=== PATIENT | male | born 2000 ===

== ENCOUNTER 2021-12-13 19:25 | Emergency (ER) | payer SELFPAY ==
[~2021-12-13] VITALS: Ht 165.1 cm; Wt 74.8 kg
[2021-12-13 19:42] VITALS: BP 122/86
[2021-12-13] MEDS ORDERED: TETRACAINE 0.5% OPHTH SOLN 4 ML BTL (SINGLE DOSE ONLY) OU ONE (20:00)
[2021-12-13] MEDS ORDERED: BSS 15 ML IR ONE (20:00)
[2021-12-13] MEDS ORDERED: NEO/POLYM/GRAM (NEOSPORIN) OPHTH SOLN 10ML OU ONE (20:00)
[2021-12-13] MEDS ORDERED: FLUORESCEIN (FLUOR-I-STRIPS) 1 MG STRP OU ONE (20:00)
--- NOTE | 2021-12-13 20:00 | ED EENT ---
History of Present Illness General Chief Complaint: Eye Problems Stated Complaint: TEAR IN LEFT EYE History of Present Illness Date Seen by Provider: Dec 13, 2021 Time Seen by Provider: 20:00 Initial Comments Patient is a 21-year-old male who was using a tap grinder to cut metal yesterday. He woke up this morning with significant left eye pain and drainage. He states he was wearing eye protection. He went to [facility] clinic today and they told him he had a "cut" on his eye. He was given some proparacaine drops prior to coming to the emergency department. His last tetanus shot was 4 years ago. He has no chronic medical conditions. Former smoker. No known drug allergies. Brazilian-speaking. Timing/Duration: gradual Location: eye (L) Prearrival Treatment: prescription meds Associated Symptoms: denies symptoms Allergies and Home Medications Allergies Coded Allergies: No Known Drug Allergies (Unverified , 12/13/21) Patient Home Medication List Home Medication List Reviewed: Yes Review of Systems Review of Systems Constitutional: see HPI Eyes: Drainage, Foreign Body Sensation, Inflammation, Pain Ears: No Symptoms Reported Nose: no symptoms reported Throat: no symptoms reported Respiratory: no symptoms reported Cardiovascular: no symptoms reported Gastrointestinal: no symptoms reported Musculoskeletal: no symptoms reported Skin: no symptoms reported All Other Systems Reviewed Negative Unless Noted: Yes Visual Acuity : Eye Location: Left Vision Acuity Degree: 20/30 Physical Exam Vital Signs Vital Signs - First Documented 12/13/21 19:42 Temp 36.3 Pulse 73 Resp 16 B/P (MAP) 122/86 (98) Pulse Ox 98 Height, Weight, BMI Height: '" Weight: lbs. oz. kg; BMI Method: General Appearance: WD/WN, no apparent distress Eyes: left eye abnormal pupil, left eye conjunctival inflammation, left eye corneal abrasion, left eye lid inflammation, left eye other (primarily clear tears - a little "milky" at the medial canthus) Ears: bilateral ear auricle normal Cardiovascular: regular rate, rhythm Respiratory: no respiratory distress, no accessory muscle use Neurologic/Psychiatric: alert, normal mood/affect, oriented x 3 Skin: normal color, warm/dry Visual acuity left eye 20/30; right eye 20/40 Procedures/Interventions Eye : Location: left eye Anesthesia (gtts): Tetracaine Progress/Procedure Conclusion Slit lamp used to evaluate the left eye. Significant dye uptake across the upper third of the cornea, in a punctate fashion. Small abrasion at the 7 oclock position; another area of punctate uptake at about the 5 oclock position over the iris Progress/Results/Core Measures Results/Orders My Orders Orders - KERMIT LAMAS MD Alfredo/Poly/Gram Ophthalmic Soln (Neosporin (12/13/21 20:00) Tetracaine 0.5% Ophth Mel Sdv (Tetracai (12/13/21 20:00) Fluorescein Strips (Otwiz-C-Xzldpw) (12/13/21 20:00) Balanced Salt Irrigation Soln (Bss Irrig (12/13/21 20:00) Tropicamide 1% Ophth Soln (Mydriacyl 1% (12/13/21 21:30) Alfredo/Poly/Dex Ophthalmic Susp (Maxitrol O (12/14/21 00:00) Medications Given in ED Current Medications Medications Dose Ordered Sig/Niki Route Start Time Stop Time Status Last Admin Dose Admin Balanced Salt Solution 15 ml ONCE ONCE IR 12/13/21 20:00 12/13/21 20:01 DC 12/13/21 20:44 15 ML Fluorescein Sodium 1 mg ONCE ONCE OU 12/13/21 20:00 12/13/21 20:01 DC 12/13/21 20:44 1 MG Neomycin/ Polymyxin/ Gramicidin 3 ml ONCE ONCE OU 12/13/21 20:00 12/13/21 20:01 DC 12/13/21 20:44 3 ML Tetracaine HCl 4 ml ONCE ONCE OU 12/13/21 20:00 12/13/21 20:01 DC 12/13/21 20:44 4 ML Vital Signs/I&O 12/13/21 19:42 Temp 36.3 Pulse 73 Resp 16 B/P (MAP) 122/86 (98) Pulse Ox 98 Progress Progress Note #1: Time: 21:08 Progress Note Discussed with Dr Wen - would like me to dilate the pupil and start him on antibiotic drops 4x a day. He will see him in the office at 8am in the morning for further evaluation. Progress Note #2: Time: 22:25 Progress Note After a massive investigation for Tobradex, Maxitrol and Xylet - we found none of these medications were stocked at the hospital. Patient was provided with the neomycin solution after the midriatic drops were instilled. He was instructed to use 2 drops every 4 hours religiously and strongly encouraged to keep the appointment with Dr Wen first thing in the morning. Departure Impression Primary Impression: Traumatic iritis Additional Impression: Corneal abrasion Qualified Codes: S05.02XA - Injury of conjunctiva and corneal abrasion without foreign body, left eye, initial encounter Disposition: 01 HOME, SELF-CARE Condition: Stable Departure-Patient Inst. Decision time for Depature: 21:38 Referrals: RIKKI WEN OD NO,LOCAL PHYSICIAN (PCP) Primary Care Physician Patient Instructions: Corneal Abrasion ED Add. Discharge Instructions: Use the antibiotic drops, 2 drops in your left eye every [address] Wen will see you in his clinic at 8 AM in the morning. Please be there on time. The address is on this paperwork. You can take [id number] ibuprofen 3 tablets every 6 hours with food as needed for pain. You should not have a fire truck driver until you see Dr. Wen because your vision will be affected for the next 24 hours. Return to the emergency department for increased pain, fever, drainage or any other emergent concerning symptoms. Use las gotas antibiticas, 2 gotas en yuan tessa davida cada [address] Wen lo reed en yuan clnica a las 8 AM de la maana. Por favor, llegue a tiempo. La direccin est en marie papeleo. Puede meagan ibuprofeno 3 tabletas de venta ruben cada 6 horas con alimentos segn sea necesario para el dolor. No debe tener un conductor hasta que aurelio al Dr. Wen porque yuan visin se reed afectada sasha las prximas 24 horas. Regrese al departamento de emergencias para un aumento del dolor, fiebre, drenaje o cualquier otro sntoma emergente relacionado. Images Eye 1 - Dye uptake (fluorescein) 2 - Dye uptake (fluorescein) 3 - Dye uptake (fluorescein) Copy Copies To 1: RIKKI WEN OD, KATHRYN M MD Dec 13, 2021 20:00
[2021-12-13] MEDS ORDERED: TROPICAMIDE 1% OPH SOLN (MYDRIACYL) 15 ML BTL OU ONE (21:30)
[2021-12-14] MEDS ORDERED: NEO/POLY/DEX (MAXITROL) OPHTH SUSP 5 ML OP SCH
== END 2021-12-13 22:36 | disposition home or self-care (01) ==
LOC: ER 19:29
DX: S05.02XA Injury of conjunctiva and corneal abrasion without foreign body, left eye, initial encounter (principal); H20.9 Unspecified iridocyclitis; X58.XXXA Exposure to other specified factors, initial encounter
CPT/HCPCS: 99281